=== PATIENT | female | born 2000 | race Caucasian/White ===

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

== ENCOUNTER 2020-01-21 03:00 | Inpatient (IN) | payer OTHER ==
[~2020-01-21] VITALS: Ht 157.5 cm; Wt 54.9 kg
[2020-01-21 03:12] LABS: BASOPHILS ABSOLUTE AUTO 0.06 K/mm3 (0.00-0.23); BASOPHILS PERCENT AUTO 0 % (0-2); EOSINOPHILS ABSOLUTE AUTO 0.13 K/mm3 (0.00-0.68); EOSINOPHILS PERCENT AUTO 1 % (0-6); Hematocrit 42.2 % (33.0-51.0); IMMATURE GRAN ABSOLUTE AUTO 0.04 K/mm3 (0.00-0.10); IMMATURE GRAN PERCENT AUTO 0 % (0-1); LYMPHOCYTES ABSOLUTE AUTO 3.93 K/mm3 (0.84-5.20); LYMPHOCYTES PERCENT AUTO 29 % (21-46); MONOCYTES ABSOLUTE AUTO 1.02 K/mm3 (0.16-1.47); MONOCYTES PERCENT AUTO 7 % (4-13); Mean Corpuscular HGB 27.1 pg (26.0-34.0); Mean Corpuscular HGB Conc 30.8 g/dL (31.5-36.5); Mean Corpuscular Volume 88 fL (80-100); Mean Platelet Volume 10.2 fL (9.1-12.4); NEUTROPHILS ABSOLUTE AUTO 8.54 K/mm3 (1.96-9.15); NEUTROPHILS PERCENT AUTO 62 % (41-73); Platelet Count 380 K/mm3 (150-400); RDW Coefficient Variation 13.8 % (11.7-14.2); RDW Standard Deviation 44.5 fL (35.1-46.3); White Blood Cell Count 13.72 K/mm3 (4.00-11.30)
[2020-01-21 03:33] LABS: Acetaminophen, Random <2.0 ug/mL (10.0-30.0); Alanine Aminotransfer (ALT/SGP 17 U/L (12-78); Albumin, Blood 4.1 g/dL (3.4-5.0); Albumin/Globulin Ratio 1.4 (0.8-1.8); Alk Phos 48 U/L (45-116); Anion Gap 14 mmol/L (6-16); Aspartate Aminotrans (AST/SGOT 13 U/L (12-37); Bilirubin, Total 0.6 mg/dL (0.1-1.0); Blood Urea Nitrogen 6 mg/dL (8-21); Bun/Creatinine Ratio 6.3 (12.0-20.0); CO2, Blood 19 mmol/L (21-32); Chloride, Blood 111 mmol/L (98-108); Creatinine, Blood 0.95 mg/dL (0.40-1.00); Ethanol (Alcohol), Blood, Med <3 mg/dL; Glomerular Filtration Rate >60 (60-); Glucose, Blood 103 mg/dL (70-99); Potassium, Blood 3.3 mmol/L (3.5-5.5); Salicylate <1.7 mg/dL (2.8-20.0); Sodium, Blood 144 mmol/L (136-145); Thyroxine (T4) 9.9 ug/dL (4.8-13.9); Total Protein, Blood 7.1 g/dL (6.4-8.2)
[2020-01-21 04:12] LABS: Source, Urine Clean Catch
[2020-01-21 04:16] LABS: Bilirubin, Urine Neg (Neg); Blood, Urine 5+ (Neg); Glucose Qualitative, Urine Neg (Neg); Ketones, Urine 1+ (Neg); Leukocyte Esterase, Urine 2+ (Neg); Nitrite, Urine Pos (Neg); Protein, Urine 3+ (Neg); Specific Gravity, Urine 1.015 (1.003-1.022); Urobilinogen, Urine NORM (Normal)
[2020-01-21 04:25] LABS: U Amphetamine Screen Not Detected; U Barbituate Screen Not Detected; U Benzodiazapine Screen Not Detected; U Buprenorphine Screen Not Detected; U Cannabinoids Screen DETECTED; U Cocaine Screen Not Detected; U Methadone Screen Not Detected; U Methamphetamine Screen Not Detected; U Opiates Screen Not Detected; U Oxycodone Screen Not Detected; U Phencyclidine Screen Not Detected; U Propoxyphene Screen Not Detected
[2020-01-21 04:26] LABS: Appearance, Urine Hazy (Clear); Color, Urine Pale Yellow (P-Yellow)
[2020-01-21 04:27] LABS: Bacteria Many /hpf; Squamous Epithelial Cells Rare /hpf (Few); White Blood Cells, Urine TNTC /hpf (0-5)
--- NOTE | 2020-01-21 06:44 | NUR ---
PATIENT ARRIVED FROM ER VIA GURNEY. PATIENT LIFTED HERSELF ONTO BED. VITALS TAKEN. AWAITING DAY RN TO GIVEN HANDOFF.
--- NOTE | 2020-01-21 18:36 | NUR ---
SHIFT SUMMARY TRANSFER OF CARE REPORT WAS GIVEN TO ABBIE RENTERIA ON MEDICAL FLOOR. PT TO TRANSFER TO ROOM 333. PT IS A&OX4. TODAY PT WAS ABLE TO SLEEP AND WAS FEELING BETTER. VITALS HAVE BEEN STABLE. PT HAS BEEN IND IN ROOM. PT REPORTS URGENCY WHEN NEEDING TO VOID. URINE IS HAZY IN COLOR, QUANTITY SUFFICIANT. PT IS HOPING TO DISCHARGE IN THE MORNING.
--- NOTE | 2020-01-21 18:46 | NUR ---
PT JUST ARRIVED FROM PCU AT 1845 VIA WHEEL CHAIR. NO DISTRESS NOTED. PT IN BED WITH CALL LIGHT WITHIN REACH WILL CONTINUE TO MONITOR. AO X4 AND ABLE TO TO AMBULATE WELL.
--- NOTE | 2020-01-21 22:11 | NUR ---
BACK ROLL LATHE OPERATOR CALLED THIS RN TO PT'S ROOM STATING THAT PT WAS HAVING A SEIZURE. WHEN THIS RN GOT TO PT'S ROOM PT WAS LYING IN THE BED STARING AT THE CEILING. SHE WAS SLOW TO RESPOND BUT WAS ABLE TO ANSWER QUESTIONS. BACK ROLL LATHE OPERATOR REPORTED THAT PT WAS "SHAKING UNCONTROLLABLY". THIS RN LEFT PT'S BEDSIDE TO NOTIFY BENIGNO BUSH. WHILE ON THE PHONE WITH BENIGNO CAVANAUGHA CALLED AGAIN TO SAY THAT PT WAS DOING IT AGAIN. BENIGNO RIPENING ROOM HAND STATED THAT SHE WOULD COME UP AND LOOK AT PT. THIS RN BACK AT BEDSIDE AND PT HAD HER R ARM TENSED UP AND THE R ARM WAS SHAKING. PT WAS ABLE TO TALK DURING THE EPISODE. BENIGNO ENTERED AND EVALUATED PT. LABS ORDERED. BENIGNO BUSH STATED THAT SHE DOES NOT BELIEVE THAT PT IS HAVING SEIZURES AND THAT IT MAY BE MORE PSYCHOLOGICALLY BASED. PT DOES HAVE MIGRAINES BUT DENIED HAVING A HEADACHE WHILE BENIGNO WAS AT BEDSIDE. SHORTLY AFTER SHE DID STATE THAT SHE HAD A HEADACHE. BENIGNO STATED THAT MIGRAINES CAN CAUSE SEIZURE LIKE ACTIVITY. NO FURTHER ORDERS AT THIS TIME. MEDICATED WITH TYLENOL FOR HEADACHE. WILL CONTINUE TO MONITOR.
--- NOTE | 2020-01-22 04:14 | NUR ---
SHIFT SUMMARY PT HAD BIZARRE EPISODES AT START OF SHIFT. SHE WOULD TENSE UP HER ARM INTO HER BODY AND SHAKE. ALMOST APPEARING LIKE SEIZURE LIKE ACTIVITY. SEE PREVIOUS NOTES. BENIGNO BUSH CAME TO ASSESS PT. ONE TIME DOSE OF XANAX 0.5 MG GIVEN. PT SLEPT WELL FOLLOWING. PT HAS DENIED ANY PAIN EXCEPT A HEADACHE. TYLENOL GIVEN. PT REPORTS THAT SHE HAS A HX OF MIGRAINES. OTHERWISE PT HAD UNEVENTFUL NIGHT. VITAL SIGNS STABLE. WILL CONTINUE TO MONITOR.
[2020-01-22 05:30] LABS: BASOPHILS ABSOLUTE AUTO 0.04 K/mm3 (0.00-0.23); BASOPHILS PERCENT AUTO 1 % (0-2); EOSINOPHILS ABSOLUTE AUTO 0.14 K/mm3 (0.00-0.68); EOSINOPHILS PERCENT AUTO 2 % (0-6); Hematocrit 35.6 % (33.0-51.0); IMMATURE GRAN ABSOLUTE AUTO 0.01 K/mm3 (0.00-0.10); IMMATURE GRAN PERCENT AUTO 0 % (0-1); LYMPHOCYTES ABSOLUTE AUTO 2.33 K/mm3 (0.84-5.20); LYMPHOCYTES PERCENT AUTO 37 % (21-46); MONOCYTES ABSOLUTE AUTO 0.47 K/mm3 (0.16-1.47); MONOCYTES PERCENT AUTO 8 % (4-13); Mean Corpuscular HGB 26.9 pg (26.0-34.0); Mean Corpuscular HGB Conc 30.9 g/dL (31.5-36.5); Mean Corpuscular Volume 87 fL (80-100); Mean Platelet Volume 10.3 fL (9.1-12.4); NEUTROPHILS ABSOLUTE AUTO 3.25 K/mm3 (1.96-9.15); NEUTROPHILS PERCENT AUTO 52 % (41-73); Platelet Count 269 K/mm3 (150-400); RDW Coefficient Variation 13.9 % (11.7-14.2); Red Blood Cell Count 4.09 M/mm3 (3.80-5.20); White Blood Cell Count 6.24 K/mm3 (4.00-11.30)
[2020-01-22 05:48] LABS: Anion Gap 5 mmol/L (6-16); Blood Urea Nitrogen 2 mg/dL (8-21); Bun/Creatinine Ratio 3.1 (12.0-20.0); CO2, Blood 26 mmol/L (21-32); Calcium, Blood 8.3 mg/dL (8.5-10.1); Chloride, Blood 109 mmol/L (98-108); Creatinine, Blood 0.65 mg/dL (0.40-1.00); Glomerular Filtration Rate >60 (60-); Glucose, Blood 77 mg/dL (70-99); Potassium, Blood 3.6 mmol/L (3.5-5.5); Sodium, Blood 140 mmol/L (136-145)
[2020-01-22] MEDS ORDERED: ALPR.25 PO (10:20)
[2020-01-22] MEDS ORDERED: Cipro250 MG PO (10:20)
--- NOTE | 2020-01-22 10:48 | NUR ---
PT DISCHARGED FROM THE UNIT. MEDICATIONS FAXED TO [facility] IN [place]. IV REMOVED. DISCHARGE INSTRUCTIONS REVIEWED. PT BEGAN TO HAVE AN ANXIETY ATTACK ORDERED ONE TIME DOSE OF XANAX PER DR. MARIA. RESOLVED BEFORE PT LEFT THE UNIT. LEFT WIHT MOTHER VIA WHEEL CHAIR
== END 2020-01-22 10:48 | disposition home or self-care (01) | DRG 872 ==
LOC: ER 03:00 → PCU 05:09 → MEDS 18:44
PROVIDERS: Emergency Medicine; Internal Medicine; ADMIT Family Medicine
DX: A41.9 Sepsis, unspecified organism (principal); N39.0 Urinary tract infection, site not specified; G43.909 Migraine, unspecified, not intractable, without status migrainosus; E87.6 Hypokalemia; F41.0 Panic disorder [episodic paroxysmal anxiety]; R93.0 Abnormal findings on diagnostic imaging of skull and head, not elsewhere classified
CPT/HCPCS: 36415; 70450; 74177; 80048; 80053; 81001; 81025; 83605; 84146; 84436; 85025; 87040; 87077; 87086; 87186; 93005; 93010; 96361; 96374; 99285-25; A9270; A9270-GY; G0480; J0696; J2060; J2405; J7030; J7120; Q9967

== ENCOUNTER → 2021-06-12 | Outpatient (CLI) | payer OTHER ==
[~2021-06-12] MED LIST changes: +ALPR.25 PO; +Cipro250 MG PO
== END | disposition home or self-care (01) ==
LOC: LAB SHORT 19:47
DX: N39.0 Urinary tract infection, site not specified (principal)
CPT/HCPCS: 87086

== ENCOUNTER → 2021-09-11 | Outpatient (CLI) | payer OTHER ==
[2021-09-11 10:07] LABS: BASOPHILS ABSOLUTE AUTO 0.03 K/mm3 (0.00-0.23); BASOPHILS PERCENT AUTO 1 % (0-2); EOSINOPHILS ABSOLUTE AUTO 0.05 K/mm3 (0.00-0.68); EOSINOPHILS PERCENT AUTO 1 % (0-6); Hematocrit 41.3 % (33.0-51.0); Hemoglobin 13.4 g/dL (11.5-16.0); IMMATURE GRAN ABSOLUTE AUTO 0.01 K/mm3 (0.00-0.10); IMMATURE GRAN PERCENT AUTO 0 % (0-1); LYMPHOCYTES ABSOLUTE AUTO 1.64 K/mm3 (0.84-5.20); LYMPHOCYTES PERCENT AUTO 28 % (21-46); MONOCYTES PERCENT AUTO 9 % (4-13); Mean Corpuscular HGB 28.2 pg (26.0-34.0); Mean Corpuscular HGB Conc 32.4 g/dL (31.5-36.5); Mean Corpuscular Volume 87 fL (80-100); NEUTROPHILS ABSOLUTE AUTO 3.64 K/mm3 (1.96-9.15); NEUTROPHILS PERCENT AUTO 62 % (41-73); Platelet Count 281 K/mm3 (150-400); RDW Coefficient Variation 13.8 % (11.7-14.2); RDW Standard Deviation 43.6 fL (35.1-46.3); Red Blood Cell Count 4.76 M/mm3 (3.80-5.20); White Blood Cell Count 5.87 K/mm3 (4.00-11.30)
== END ==
LOC: LAB SHORT 10:04
PROVIDERS: Physician Assistant
DX: R10.9 Unspecified abdominal pain (principal)
CPT/HCPCS: 85025